=== PATIENT | female | born 1935 | race Caucasian/White ===

== ENCOUNTER 2020-07-09 18:02 | Inpatient (IN) ==
[2020-07-09] MEDS ORDERED: ONDANSETRON 4 MG/2 ML VIAL IV STA (18:34)
[2020-07-09] MEDS ORDERED: ASPIRIN 325 MG TABLET PO STA (18:34)
[2020-07-09] MEDS ORDERED: NITROGLYCERIN 2% OINT 1 INCH/GM PACK TOP STA (18:34)
[2020-07-09 18:40] LABS: Basophils % 0.2 % (0.0-0.8); Hematocrit 31.9 VOL% (35.7-47.0); Hemoglobin 10.8 GM/DL (12.0-16.0); Immature Granulocytes % 0.7 %; Immature Granulocytes Absolute 0.03 #; Lymphocytes # 1.1 10*3/uL (1.4-4.0); Lymphocytes % 25.9 % (21.3-54.2); Mean Corpuscular HGB Conc 33.9 GM/DL (32-36); Mean Corpuscular Volume 89.4 FL (87-102); Mean Platelet Volume 9.8 FL (9.6-12.0); Monocytes % 8.2 % (1.7-12.7); Platelet Count 181 T/CUMM (130-400); Red Blood Count 3.57 MC/CUMM (3.8-5.5); Red Cell Distribution Width 14.6 % (9.3-17.3); White Blood Count 4.3 T/CUMM (4-12)
[2020-07-09 18:51] LABS: PT Patient Result 10.8 SECS (9.8-11.9)
[2020-07-09 18:58] LABS: Albumin 3.8 G/DL (3.4-5.0); Bilirubin,Total 0.4 MG/DL (0.2-1.0); Calcium 8.9 MG/DL (8.5-10.1); Osmolality,Calculated 291.3 MOS/KG (273-304)
[2020-07-09] MEDS ORDERED: ENOXAPARIN 100 MG/ML SYRINGE SUBCUT STA (19:11)
[2020-07-09] MEDS ORDERED: MORPHINE 4 MG/1 ML VIAL IV STA (19:11)
[2020-07-09] MEDS ORDERED: DEXTROSE 50% 25 GM/50 ML VIAL IV PRN (20:13)
[2020-07-09] MEDS ORDERED: ONDANSETRON 4 MG/2 ML VIAL IV PRN (20:13)
[2020-07-09] MEDS ORDERED: diphenhydrAMINE CAP 25 MG CAPSULE PO PRN (20:13)
[2020-07-09] MEDS ORDERED: NICOTINE 21 MG/24 HR PATCH TRANSDERM PRN (20:13)
[2020-07-09] MEDS ORDERED: guaiFENesin/DM ER 600-30 MG TABLET PO PRN (20:13)
[2020-07-09] MEDS ORDERED: hydrALAZINE 20 MG/1 ML VIAL IV PRN (20:13)
[2020-07-09] MEDS ORDERED: GLUCAGON 1 MG VIAL IM PRN (20:13)
[2020-07-09] MEDS ORDERED: NITROGLYCERIN SL 0.4 MG TABLET SL PRN (20:32)
[2020-07-09 20:51] LABS: Risk Ratio 4.6; Thyroid Stimulating Hormone 2.55 uIU/ml (0.358-3.74); VLDL CHOLESTEROL 79.8 MG/DL
[2020-07-09] MEDS: METOPROLOL TARTRATE 25 MG TABLET PO SCH (22:58)
[2020-07-09] MEDS: INSULIN REGULAR 100 UNIT/ML SUBCUT SCH (22:59)
[2020-07-09] MEDS ORDERED: ATORVASTATIN 40 MG TABLET ONE (23:15)
[2020-07-09] MEDS ORDERED: INSULIN NPH/REGULAR 70/30 100 UNIT/ML SUBCUT STA (23:23)
[2020-07-09] MEDS: ATORVASTATIN 20 MG TABLET PO SCH (23:35)
[2020-07-09] MEDS: RANOLAZINE 500 MG TABLET PO SCH (23:35)
[2020-07-10 05:18] LABS: Albumin 3.1 G/DL (3.4-5.0); Bilirubin,Total 0.4 MG/DL (0.2-1.0); Calcium 8.6 MG/DL (8.5-10.1); Osmolality,Calculated 293.3 MOS/KG (273-304); Total Protein 6.4 G/DL (6.4-8.3)
[2020-07-10] MEDS: INSULIN REGULAR 100 UNIT/ML SUBCUT SCH ×4 (07:35→23:07)
[2020-07-10] MEDS ORDERED: POTASSIUM CHLORIDE 20 MEQ TABLET PO ONE (07:50)
[2020-07-10 08:43] LABS: Bilirubin,Urine Negative (Negative); Blood, Urine Negative (Negative); Glucose,Urine (UA) Negative (Negative); Ketones,Urine Negative (Negative); Mucus,Urine Occasional /LPF (Occasional); Nitrite,Urine Negative (Negative); Protein,Urine Negative; Urine Appearance CLEAR (Clear); Urine Color Yellow (Yellow); Urine Specific Gravity 1.011 (1.001-1.035); Urine Urobilinogen < 2.0 EU/DL (0.2-1.0)
[2020-07-10] MEDS ORDERED: ENOXAPARIN 100 MG/ML SYRINGE SUBCUT SCH ×2 (09:00→20:30)
[2020-07-10] MEDS ORDERED: ASPIRIN CHEW 81 MG TABLET PO ONE (09:12)
[2020-07-10] MEDS: PANTOPRAZOLE 40 MG TABLET PO SCH (09:29)
[2020-07-10] MEDS: ASPIRIN EC 81 MG TABLET PO SCH (09:29)
[2020-07-10] MEDS: METOPROLOL TARTRATE 25 MG TABLET PO SCH ×2 (09:29→21:52)
[2020-07-10] MEDS: INSULIN NPH/REGULAR 70/30 100 UNIT/ML SUBCUT SCH ×2 (09:31→21:50)
[2020-07-10] MEDS: ISOSORBIDE MONONITRATE 60 MG TABLET PO SCH (09:50)
[2020-07-10] MEDS: allopurinoL 300 MG TABLET PO SCH (09:50)
[2020-07-10] MEDS: RANOLAZINE 500 MG TABLET PO SCH ×2 (09:50→21:52)
[2020-07-10] MEDS: ENOXAPARIN 60 MG/0.6 ML SYRINGE SUBCUT SCH ×2 (10:00→21:52)
[2020-07-10] MEDS ORDERED: REGADENOSON 0.4 MG/5 ML SYRINGE IV ONE (13:00)
[2020-07-10] MEDS ORDERED: INFLUENZA VIRUS VACCINE 0.5 ML SYRINGE IM ONE (14:46)
[2020-07-10] MEDS ORDERED: ATORVASTATIN 20 MG TABLET PO SCH (21:00)
[2020-07-10] MEDS: ATORVASTATIN 20 MG TABLET PO SCH (21:52)
[2020-07-11] MEDS ORDERED: POTASSIUM CHLORIDE 20 MEQ TABLET PO PRN (07:33)
[2020-07-11] MEDS ORDERED: DIAZEPAM 5 MG TABLET PO ONE (07:48)
[2020-07-11] MEDS ORDERED: MAGNESIUM SULF RIDER 2 GM in PREMIX 1 EACH IV PRN (07:48)
[2020-07-11] MEDS ORDERED: POTASSIUM CHLORIDE RIDER 10 MEQ in PREMIX 1 EACH IV PRN (07:48)
[2020-07-11] MEDS ORDERED: diphenhydrAMINE CAP 25 MG CAPSULE PO ONE (07:48)
[2020-07-11] MEDS ORDERED: SODIUM CHLORIDE 0.45% 1,000 ML IV SCH (08:00)
[2020-07-11] MEDS: METOPROLOL TARTRATE 25 MG TABLET PO SCH ×2 (09:24→20:56)
[2020-07-11] MEDS: PANTOPRAZOLE 40 MG TABLET PO SCH (09:24)
[2020-07-11] MEDS: ISOSORBIDE MONONITRATE 60 MG TABLET PO SCH (09:24)
[2020-07-11] MEDS: ASPIRIN EC 81 MG TABLET PO SCH (09:24)
[2020-07-11] MEDS: allopurinoL 300 MG TABLET PO SCH (09:24)
[2020-07-11] MEDS: RANOLAZINE 500 MG TABLET PO SCH ×2 (09:24→20:56)
[2020-07-11] MEDS: INSULIN REGULAR 100 UNIT/ML SUBCUT SCH ×4 (09:28→21:03)
[2020-07-11] MEDS: INSULIN NPH/REGULAR 70/30 100 UNIT/ML SUBCUT SCH ×2 (09:29→20:58)
[2020-07-11 09:31] LABS: Basophils % 0.4 % (0.0-0.8); Hematocrit 28.9 VOL% (35.7-47.0); Hemoglobin 9.5 GM/DL (12.0-16.0); Immature Granulocytes % 1.1 %; Immature Granulocytes Absolute 0.03 #; Lymphocytes # 0.8 10*3/uL (1.4-4.0); Lymphocytes % 28.3 % (21.3-54.2); Mean Corpuscular HGB Conc 32.9 GM/DL (32-36); Monocytes % 11.2 % (1.7-12.7); Platelet Count 122 T/CUMM (130-400); Red Blood Count 3.14 MC/CUMM (3.8-5.5); Red Cell Distribution Width 14.8 % (9.3-17.3); White Blood Count 2.7 T/CUMM (4-12)
[2020-07-11 09:50] LABS: Calcium 8.6 MG/DL (8.5-10.1)
[2020-07-11] MEDS ORDERED: HEPARIN/NACL 0.9% 2 UNITS/ML 500 ML IV ONE (12:59)
[2020-07-11] MEDS ORDERED: LIDOCAINE 1% 20 ML VIAL ONE (12:59)
[2020-07-11] MEDS ORDERED: LIDOCAINE 1%/EPI INJ 20 ML VIAL ONE ×2 (13:00→13:01)
[2020-07-11] MEDS ORDERED: ceFAZolin 1,000 MG VIAL ONE (13:08)
[2020-07-11] MEDS ORDERED: diphenhydrAMINE 50 MG/1 ML VIAL ONE (13:11)
[2020-07-11] MEDS ORDERED: fentaNYL 100 MCG/2 ML VIAL ONE (13:16)
[2020-07-11] MEDS ORDERED: MIDAZOLAM 2 MG/2 ML VIAL ONE (13:25)
[2020-07-11] MEDS ORDERED: KETOROLAC 10 MG TABLET PO PRN (14:17)
[2020-07-11] MEDS ORDERED: DEXTROSE 5% NACL 0.45% 1,000 ML IV SCH (14:30)
[2020-07-11] MEDS ORDERED: POLYETHYLENE GLYCOL POWDER 17 GM PACK PO PRN (20:18)
[2020-07-11] MEDS: ATORVASTATIN 20 MG TABLET PO SCH (20:56)
[2020-07-12 05:11] LABS: Basophils % 0.5 % (0.0-0.8); Hematocrit 29.5 VOL% (35.7-47.0); Hemoglobin 9.7 GM/DL (12.0-16.0); Immature Granulocytes % 0.7 %; Immature Granulocytes Absolute 0.03 #; Lymphocytes # 0.7 10*3/uL (1.4-4.0); Lymphocytes % 17.1 % (21.3-54.2); Mean Corpuscular HGB Conc 32.9 GM/DL (32-36); Mean Corpuscular Volume 91.6 FL (87-102); Mean Platelet Volume 10.1 FL (9.6-12.0); Monocytes % 8.2 % (1.7-12.7); Neutrophils % 73.5 % (38.7-73.9); Platelet Count 135 T/CUMM (130-400); Red Blood Count 3.22 MC/CUMM (3.8-5.5); Red Cell Distribution Width 14.7 % (9.3-17.3); White Blood Count 4.1 T/CUMM (4-12)
[2020-07-12 05:49] LABS: Calcium 8.5 MG/DL (8.5-10.1); Osmolality,Calculated 290.7 MOS/KG (273-304)
[2020-07-12] MEDS: INSULIN REGULAR 100 UNIT/ML SUBCUT SCH ×2 (08:36→12:12)
[2020-07-12] MEDS: INSULIN NPH/REGULAR 70/30 100 UNIT/ML SUBCUT SCH (08:37)
[2020-07-12] MEDS: ASPIRIN EC 81 MG TABLET PO SCH (08:38)
[2020-07-12] MEDS: RANOLAZINE 500 MG TABLET PO SCH (08:38)
[2020-07-12] MEDS: ISOSORBIDE MONONITRATE 60 MG TABLET PO SCH (08:38)
[2020-07-12] MEDS: allopurinoL 300 MG TABLET PO SCH (08:38)
[2020-07-12] MEDS: PANTOPRAZOLE 40 MG TABLET PO SCH (08:38)
[2020-07-12] MEDS: METOPROLOL TARTRATE 25 MG TABLET PO SCH (08:38)
[2020-07-12 12:31] VITALS: BP 154/67
== END 2020-07-12 15:23 | disposition home health service (06) | DRG 243 ==
LOC: N.ED 18:02 → N.EDINP 18:02 → N.TELEN 07-10 12:01
PROVIDERS: ADMIT Internal Medicine Geriatric Medicine; ATTEND Internal Medicine Geriatric Medicine

== ENCOUNTER 2020-11-17 10:46 | Inpatient (IN) ==
[2020-11-17 11:59] LABS: Basophils % 0.2 % (0.0-0.8); Hematocrit 29.6 VOL% (35.7-47.0); Hemoglobin 9.5 GM/DL (12.0-16.0); Immature Granulocytes % 6.5 %; Immature Granulocytes Absolute 0.28 #; Lymphocytes # 0.4 10*3/uL (1.4-4.0); Lymphocytes % 10.3 % (21.3-54.2); Mean Corpuscular HGB Conc 32.1 GM/DL (32-36); Mean Corpuscular Volume 90.2 FL (87-102); Mean Platelet Volume 10.5 FL (9.6-12.0); Monocytes % 7.5 % (1.7-12.7); Neutrophils % 75.5 % (38.7-73.9); Platelet Count 181 T/CUMM (130-400); Red Blood Count 3.28 MC/CUMM (3.8-5.5); Red Cell Distribution Width 13.8 % (9.3-17.3); White Blood Count 4.3 T/CUMM (4-12)
[2020-11-17 12:14] LABS: PT Patient Result 10.9 SECS (9.8-11.9)
[2020-11-17 12:23] LABS: Albumin 2.5 G/DL (3.4-5.0); Bilirubin,Total 0.6 MG/DL (0.2-1.0); Calcium 7.5 MG/DL (8.5-10.1); Osmolality,Calculated 284.3 MOS/KG (273-304); Potassium 3.9 MMOL/L (3.5-5.1); Total Protein 5.5 G/DL (5.0-7.5)
[2020-11-17 12:25] LABS: Band Neutrophils 2 % (0-10); Lymphocytes 5 % (20-55); Segmented Neutrophils 92 % (50-85); Total Cells Counted 100
[2020-11-17 12:26] LABS: Burr Cells Slight; Elliptocytes Few; Platelet Estimate Adequate; Poikilocytosis Few
[2020-11-17] MEDS ORDERED: PIPERACILLIN/TAZOBACTAM 3,375 MG in SODIUM CHLORIDE 0.9% 100 ML IV STA (12:42)
[2020-11-17] MEDS ORDERED: SODIUM CHLORIDE 0.9% 100 ML IV ONE (13:08)
[2020-11-17] MEDS ORDERED: PIPERACILLIN/TAZOBACTAM 3,375 MG VIAL IV ONE (13:09)
[2020-11-17] MEDS ORDERED: DEXTROSE 50% 25 GM/50 ML VIAL IV PRN ×2 (15:19)
[2020-11-17] MEDS ORDERED: ACETAMINOPHEN 325 MG TABLET PO PRN (15:19)
[2020-11-17] MEDS ORDERED: GLUCAGON 1 MG VIAL IM PRN ×2 (15:19)
[2020-11-17 15:44] LABS: Ferritin 187.3 ng/ml (8-252)
[2020-11-17] MEDS: methylPREDNISolone SOD SUC 40 MG/1 ML VIAL IV SCH (17:42)
[2020-11-17] MEDS: ENOXAPARIN 40 MG/0.4 ML SYRINGE SUBCUT SCH (17:42)
[2020-11-17] MEDS: INSULIN LISPRO 100 UNIT/ML SUBCUT SCH ×2 (17:42→20:13)
[2020-11-17] MEDS: ASCORBIC ACID 500 MG TABLET PO SCH (20:13)
[2020-11-18] MEDS: methylPREDNISolone SOD SUC 40 MG/1 ML VIAL IV SCH ×4 (00:20→23:15)
[2020-11-18 05:27] LABS: Basophils % 0.4 % (0.0-0.8); Hematocrit 29.5 VOL% (35.7-47.0); Hemoglobin 9.4 GM/DL (12.0-16.0); Immature Granulocytes % 10.5 %; Immature Granulocytes Absolute 0.26 #; Lymphocytes # 0.2 10*3/uL (1.4-4.0); Lymphocytes % 8.9 % (21.3-54.2); Mean Corpuscular HGB Conc 31.9 GM/DL (32-36); Mean Corpuscular Volume 89.4 FL (87-102); Mean Platelet Volume 10.1 FL (9.6-12.0); Monocytes % 2.8 % (1.7-12.7); Neutrophils % 77.4 % (38.7-73.9); Platelet Count 151 T/CUMM (130-400); Red Cell Distribution Width 13.6 % (9.3-17.3); White Blood Count 2.5 T/CUMM (4-12)
[2020-11-18 05:49] LABS: Band Neutrophils 1 % (0-10); Hypochromasia 1+; Lymphocytes 6 % (20-55); Microcytosis 1+; Platelet Estimate Adequate; Segmented Neutrophils 91 % (50-85); Total Cells Counted 100
[2020-11-18] MEDS: ZINC GLUCONATE 50 MG TABLET PO SCH (08:32)
[2020-11-18] MEDS: PANTOPRAZOLE 40 MG TABLET PO SCH (08:32)
[2020-11-18] MEDS: ASCORBIC ACID 500 MG TABLET PO SCH ×2 (08:32→20:10)
[2020-11-18] MEDS: CHOLECALCIFEROL 1,000 UNIT TABLET PO SCH (08:32)
[2020-11-18] MEDS: AZITHROMYCIN INJ 500 MG in SODIUM CHLORIDE 0.9% 250 ML IV SCH (08:34)
[2020-11-18] MEDS ORDERED: MAGNESIUM SULF RIDER 2 GM in PREMIX 1 EACH IV PRN (09:13)
[2020-11-18] MEDS: INSULIN LISPRO 100 UNIT/ML SUBCUT SCH ×4 (09:13→20:10)
[2020-11-18] MEDS ORDERED: MAGNESIUM SULF RIDER 4 GM in PREMIX 1 EACH IV PRN (09:13)
[2020-11-18] MEDS: ENOXAPARIN 40 MG/0.4 ML SYRINGE SUBCUT SCH (20:10)
[2020-11-19 05:46] LABS: Hematocrit 27.4 VOL% (35.7-47.0); Hemoglobin 8.9 GM/DL (12.0-16.0); Immature Granulocytes Absolute 0.15 #; Lymphocytes # 0.3 10*3/uL (1.4-4.0); Lymphocytes % 7.7 % (21.3-54.2); Mean Corpuscular HGB Conc 32.5 GM/DL (32-36); Mean Corpuscular Volume 90.4 FL (87-102); Mean Platelet Volume 10.4 FL (9.6-12.0); Monocytes % 3.2 % (1.7-12.7); Neutrophils % 85.1 % (38.7-73.9); Platelet Count 175 T/CUMM (130-400); Red Blood Count 3.03 MC/CUMM (3.8-5.5); Red Cell Distribution Width 13.5 % (9.3-17.3); White Blood Count 3.8 T/CUMM (4-12)
[2020-11-19 06:08] LABS: Albumin 2.4 G/DL (3.4-5.0); Bilirubin,Total 0.8 MG/DL (0.2-1.0); Calcium 7.9 MG/DL (8.5-10.1); Ferritin 210.2 ng/ml (8-252); Osmolality,Calculated 291.7 MOS/KG (273-304)
[2020-11-19] MEDS: ZINC GLUCONATE 50 MG TABLET PO SCH (08:49)
[2020-11-19] MEDS: CHOLECALCIFEROL 1,000 UNIT TABLET PO SCH (08:50)
[2020-11-19] MEDS: ASCORBIC ACID 500 MG TABLET PO SCH (08:50)
[2020-11-19] MEDS: PANTOPRAZOLE 40 MG TABLET PO SCH (08:50)
[2020-11-19] MEDS: methylPREDNISolone SOD SUC 40 MG/1 ML VIAL IV SCH (08:50)
[2020-11-19] MEDS: INSULIN LISPRO 100 UNIT/ML SUBCUT SCH ×2 (08:51→11:26)
[2020-11-19] MEDS: AZITHROMYCIN INJ 500 MG in SODIUM CHLORIDE 0.9% 250 ML IV SCH (08:51)
[2020-11-19 11:11] VITALS: BP 149/69
== END 2020-11-19 13:00 | disposition home or self-care (01) | DRG 177 ==
LOC: N.ED 10:46 → N.2E 15:19
PROVIDERS: ADMIT Internal Medicine; ATTEND Internal Medicine

== ENCOUNTER 2022-05-11 18:40 | Observation (INO) ==
[2022-05-11] MEDS ORDERED: MORPHINE 2 MG/1 ML SYRINGE IM STA (19:11)
[2022-05-11] MEDS ORDERED: ONDANSETRON 4 MG/2 ML VIAL IM STA (19:11)
[2022-05-11] MEDS ORDERED: MORPHINE 2 MG/1 ML SYRINGE IV STA ×2 (20:13→22:54)
[2022-05-11] MEDS ORDERED: ONDANSETRON 4 MG/2 ML VIAL IV ONE ×2 (20:13→22:54)
[2022-05-11 20:25] LABS: Basophils % 0.3 % (0.0-0.8); Eosinophils # 0.1 10*3/uL (0.0-0.87); Eosinophils % 1.2 % (0.00-10.9); Hematocrit 35.4 VOL% (35.7-47.0); Hemoglobin 11.4 GM/DL (12.0-16.0); Immature Granulocytes Absolute 0.06 #; Lymphocytes # 1.4 10*3/uL (1.4-4.0); Lymphocytes % 23.8 % (21.3-54.2); Mean Corpuscular HGB Conc 32.2 GM/DL (32-36); Mean Corpuscular Volume 94.9 FL (87-102); Mean Platelet Volume 9.6 FL (9.6-12.0); Monocytes # 0.4 10*3/uL (0.11-0.8); Monocytes % 7.2 % (1.7-12.7); Neutrophils % 66.5 % (38.7-73.9); Platelet Count 179 T/CUMM (130-400); Red Blood Count 3.73 MC/CUMM (3.8-5.5); Red Cell Distribution Width 13.4 % (9.3-17.3); White Blood Count 5.7 T/CUMM (4-12)
[2022-05-11 20:44] LABS: Calcium 8.8 MG/DL (8.5-10.1); Osmolality,Calculated 300.8 MOS/KG (273-304); Potassium 4.9 MMOL/L (3.5-5.1)
[2022-05-11] MEDS ORDERED: LACTATED RINGERS 1,000 ML IV ONE (21:15)
[2022-05-12] MEDS ORDERED: HYDROmorphone 1 MG/1 ML SYRINGE IV PRN (00:13)
[2022-05-12] MEDS ORDERED: ZALEPLON 5 MG CAPSULE PO PRN (00:14)
[2022-05-12] MEDS ORDERED: guaiFENesin/DM ER 600-30 MG TABLET PO PRN (00:14)
[2022-05-12] MEDS ORDERED: ONDANSETRON 4 MG/2 ML VIAL IV PRN (00:14)
[2022-05-12] MEDS ORDERED: GLUCAGON 1 MG VIAL IM PRN ×2 (00:14)
[2022-05-12] MEDS ORDERED: hydrALAZINE 20 MG/1 ML VIAL IV PRN (00:14)
[2022-05-12] MEDS ORDERED: NICOTINE 21 MG/24 HR PATCH TRANSDERM PRN (00:14)
[2022-05-12] MEDS ORDERED: PROMETHAZINE 25 MG/1 ML VIAL IM PRN (00:14)
[2022-05-12] MEDS ORDERED: DEXTROSE 50% 25 GM/50 ML VIAL IV PRN (00:14)
[2022-05-12] MEDS ORDERED: diphenhydrAMINE CAP 25 MG CAPSULE PO PRN (00:14)
[2022-05-12] MEDS ORDERED: DEXTROSE 10% 250 ML BAG IV PRN (00:22)
[2022-05-12 05:34] LABS: Basophils % 0.4 % (0.0-0.8); Eosinophils # 0.1 10*3/uL (0.0-0.87); Eosinophils % 0.9 % (0.00-10.9); Hematocrit 38.2 VOL% (35.7-47.0); Immature Granulocytes % 0.9 %; Immature Granulocytes Absolute 0.07 #; Lymphocytes # 1.6 10*3/uL (1.4-4.0); Lymphocytes % 20.3 % (21.3-54.2); Mean Corpuscular HGB Conc 31.4 GM/DL (32-36); Mean Corpuscular Volume 95.7 FL (87-102); Mean Platelet Volume 9.4 FL (9.6-12.0); Monocytes # 0.8 10*3/uL (0.11-0.8); Neutrophils % 67.5 % (38.7-73.9); Platelet Count 178 T/CUMM (130-400); Red Blood Count 3.99 MC/CUMM (3.8-5.5); Red Cell Distribution Width 13.4 % (9.3-17.3)
[2022-05-12 05:48] LABS: Calcium 8.9 MG/DL (8.5-10.1); Osmolality,Calculated 297.3 MOS/KG (273-304)
[2022-05-12] MEDS ORDERED: INSULIN LISPRO 100 UNIT/ML SUBCUT SCH (07:30)
[2022-05-12] MEDS ORDERED: KETOROLAC 10 MG TABLET PO PRN (08:05)
[2022-05-12] MEDS: DOCUSATE SODIUM 100 MG CAPSULE PO SCH ×2 (08:56→21:08)
[2022-05-12] MEDS: PANTOPRAZOLE 40 MG TABLET PO SCH (08:56)
[2022-05-12] MEDS: ISOSORBIDE MONONITRATE 60 MG TABLET PO SCH (08:56)
[2022-05-12] MEDS: FUROSEMIDE 40 MG TABLET PO SCH ×2 (08:56→16:46)
[2022-05-12] MEDS: GABAPENTIN 100 MG CAPSULE PO SCH ×2 (08:56→21:08)
[2022-05-12] MEDS: ATORVASTATIN 20 MG TABLET PO SCH (08:56)
[2022-05-12] MEDS: ASPIRIN EC 81 MG TABLET PO SCH (08:56)
[2022-05-12] MEDS: cycloSPORINE OPH EMUL 1 VIAL BOTH EYES SCH ×2 (08:57→22:17)
[2022-05-12] MEDS: BISACODYL 5 MG TABLET PO SCH (08:58)
[2022-05-12] MEDS: RANOLAZINE 500 MG TABLET PO SCH ×2 (08:58→21:08)
[2022-05-12] MEDS ORDERED: APIXABAN 2.5 MG TABLET PO SCH (09:00)
[2022-05-12] MEDS ORDERED: HEPARIN 5,000 UNIT/1 ML VIAL SUBCUT SCH (09:00)
[2022-05-12] MEDS: INSULIN NPH/REGULAR 70/30 100 UNIT/ML SUBCUT SCH (09:02)
[2022-05-12] MEDS ORDERED: MORPHINE 2 MG/1 ML SYRINGE IV PRN (09:09)
[2022-05-12] MEDS ORDERED: INSULIN NPH/REGULAR 70/30 100 UNIT/ML SUBCUT SCH (17:00)
[2022-05-13 05:48] LABS: Basophils % 0.2 % (0.0-0.8); Eosinophils # 0.1 10*3/uL (0.0-0.87); Eosinophils % 1.7 % (0.00-10.9); Hematocrit 30.9 VOL% (35.7-47.0); Hemoglobin 9.9 GM/DL (12.0-16.0); Immature Granulocytes % 0.9 %; Immature Granulocytes Absolute 0.05 #; Lymphocytes # 1.3 10*3/uL (1.4-4.0); Lymphocytes % 23.3 % (21.3-54.2); Mean Corpuscular Volume 95.7 FL (87-102); Mean Platelet Volume 9.6 FL (9.6-12.0); Monocytes # 0.5 10*3/uL (0.11-0.8); Monocytes % 8.8 % (1.7-12.7); Neutrophils % 65.1 % (38.7-73.9); Platelet Count 172 T/CUMM (130-400); Red Blood Count 3.23 MC/CUMM (3.8-5.5); Red Cell Distribution Width 13.6 % (9.3-17.3); White Blood Count 5.4 T/CUMM (4-12)
[2022-05-13 06:07] LABS: Calcium 8.2 MG/DL (8.5-10.1); Osmolality,Calculated 291.5 MOS/KG (273-304); Potassium 4.1 MMOL/L (3.5-5.1)
[2022-05-13] MEDS: RANOLAZINE 500 MG TABLET PO SCH (09:43)
[2022-05-13] MEDS: ISOSORBIDE MONONITRATE 60 MG TABLET PO SCH (09:43)
[2022-05-13] MEDS: FUROSEMIDE 40 MG TABLET PO SCH ×2 (09:43→16:00)
[2022-05-13] MEDS: ASPIRIN EC 81 MG TABLET PO SCH (09:43)
[2022-05-13] MEDS: GABAPENTIN 100 MG CAPSULE PO SCH (09:43)
[2022-05-13] MEDS: ATORVASTATIN 20 MG TABLET PO SCH (09:43)
[2022-05-13] MEDS: PANTOPRAZOLE 40 MG TABLET PO SCH (09:44)
[2022-05-13] MEDS: INSULIN NPH/REGULAR 70/30 100 UNIT/ML SUBCUT SCH (09:46)
[2022-05-13] MEDS: BISACODYL 5 MG TABLET PO SCH (09:47)
[2022-05-13] MEDS: DOCUSATE SODIUM 100 MG CAPSULE PO SCH (09:47)
[2022-05-13] MEDS: cycloSPORINE OPH EMUL 1 VIAL BOTH EYES SCH (10:15)
[2022-05-13 12:25] VITALS: BP 171/68
== END 2022-05-13 16:29 | disposition home health service (06) ==
LOC: N.ED 18:40 → N.3E 18:40 → SUATTDRO 05-12 00:14 → N.3E 05-12 01:48
PROVIDERS: ADMIT Internal Medicine; ATTEND Internal Medicine

== ENCOUNTER 2022-09-01 21:52 | Inpatient (IN) ==
[2022-09-01] MEDS ORDERED: SODIUM CHLORIDE 0.9% 500 ML IV STA (23:22)
[2022-09-02 00:33] LABS: Hematocrit 29.6 VOL% (35.7-47.0); Hemoglobin 9.8 GM/DL (12.0-16.0); Immature Granulocytes % 0.5 %; Immature Granulocytes Absolute 0.02 #; Lymphocytes # 0.3 10*3/uL (1.4-4.0); Lymphocytes % 7.1 % (21.3-54.2); Mean Corpuscular HGB Conc 33.1 GM/DL (32-36); Mean Corpuscular Volume 91.1 FL (87-102); Mean Platelet Volume 10.7 FL (9.6-12.0); Monocytes # 0.4 10*3/uL (0.11-0.8); Monocytes % 10.4 % (1.7-12.7); Platelet Count 100 T/CUMM (130-400); Red Blood Count 3.25 MC/CUMM (3.8-5.5); Red Cell Distribution Width 13.7 % (9.3-17.3); White Blood Count 3.7 T/CUMM (4-12)
[2022-09-02 00:41] LABS: INR 1.1; PT Patient Result 12.5 SECS (10.1-12.1)
[2022-09-02 00:44] LABS: Amorphous Crystals,Urine Occasional /HPF (Few); Glucose,Urine (UA) 100 mg/dL (Negative); Ketones,Urine Negative (Negative); Protein,Urine 100 mg/dL (Negative); Urine Appearance Clear (Clear); Urine Color Yellow (Yellow)
[2022-09-02 00:45] LABS: Bilirubin,Urine Negative (Negative); Blood, Urine Moderate mg/dL (Negative); Nitrite,Urine Negative (Negative); Urine Urobilinogen 0.2 eU/dL (<2.0)
[2022-09-02] MEDS ORDERED: NITROFURANTOIN MACRO/MONO 100 MG CAPSULE PO ONE (00:59)
[2022-09-02] MEDS ORDERED: PIPERACILLIN/TAZOBACTAM 3,375 MG in SODIUM CHLORIDE 0.9% 100 ML IV STA (01:12)
[2022-09-02 01:15] LABS: Albumin 3.3 G/DL (3.4-5.0); Bilirubin,Total 0.7 MG/DL (0.20-1.00); Calcium 8.1 MG/DL (8.5-10.1); Osmolality,Calculated 291.4 MOS/KG (273-304); Potassium 3.4 MMOL/L (3.5-5.1); Total Protein 5.9 G/DL (6.4-8.2)
[2022-09-02] MEDS ORDERED: ASPIRIN 325 MG TABLET PO STA (01:19)
[2022-09-02] MEDS ORDERED: ACETAMINOPHEN 500 MG TABLET PO STA (01:30)
[2022-09-02] MEDS ORDERED: ONDANSETRON 4 MG/2 ML VIAL IV PRN (02:33)
[2022-09-02] MEDS ORDERED: ACETAMINOPHEN 325 MG TABLET PO PRN (02:33)
[2022-09-02] MEDS ORDERED: MORPHINE 2 MG/1 ML SYRINGE IV PRN (02:33)
[2022-09-02] MEDS ORDERED: hydrALAZINE 20 MG/1 ML VIAL IV PRN (02:33)
[2022-09-02] MEDS ORDERED: SODIUM CHLORIDE 0.9% 1,000 ML IV SCH (03:00)
[2022-09-02 04:41] LABS: Risk Ratio 3.13; Thyroid Stimulating Hormone 4.63 uIU/ml (0.358-3.74)
[2022-09-02] MEDS: INSULIN LISPRO 100 UNIT/ML SUBCUT SCH ×4 (06:16→20:52)
[2022-09-02] MEDS: PANTOPRAZOLE 40 MG TABLET PO SCH (09:15)
[2022-09-02] MEDS: PIPERACILLIN/TAZOBACTAM 3,375 MG in SODIUM CHLORIDE 0.9% 100 ML IV SCH ×2 (09:15→17:41)
[2022-09-02 09:46] LABS: Free T4 (Free Thyroxine) 0.69 NG/DL (0.76-1.46)
[2022-09-02] MEDS ORDERED: DEXTROSE 10% 250 ML BAG IV PRN (13:54)
[2022-09-02] MEDS ORDERED: GLUCAGON 1 MG VIAL IM PRN (13:54)
[2022-09-02] MEDS: ASPIRIN EC 81 MG TABLET PO SCH (20:51)
[2022-09-02] MEDS: OMEGA 3 ACID ETHYL ESTERS 1 GM CAPSULE PO SCH (20:51)
[2022-09-02] MEDS: GABAPENTIN 100 MG CAPSULE PO SCH (20:51)
[2022-09-02] MEDS: ATORVASTATIN 20 MG TABLET PO SCH (20:51)
[2022-09-02] MEDS: cycloSPORINE OPH EMUL 1 VIAL BOTH EYES SCH (20:52)
[2022-09-02] MEDS: RANOLAZINE 500 MG TABLET PO SCH (20:52)
[2022-09-02] MEDS: APIXABAN 2.5 MG TABLET PO SCH (20:52)
[2022-09-02] MEDS: INSULIN GLARGINE 100 UNIT/ML SUBCUT SCH (21:58)
[2022-09-03] MEDS: PIPERACILLIN/TAZOBACTAM 3,375 MG in SODIUM CHLORIDE 0.9% 100 ML IV SCH ×3 (00:43→16:08)
[2022-09-03 06:13] LABS: Basophils % 0.3 % (0.0-0.8); Eosinophils % 1.1 % (0.00-10.9); Hematocrit 26.5 VOL% (35.7-47.0); Hemoglobin 8.9 GM/DL (12.0-16.0); Immature Granulocytes % 0.3 %; Immature Granulocytes Absolute 0.01 #; Lymphocytes # 0.6 10*3/uL (1.4-4.0); Mean Corpuscular HGB Conc 33.6 GM/DL (32-36); Mean Corpuscular Volume 91.4 FL (87-102); Mean Platelet Volume 11.3 FL (9.6-12.0); Monocytes # 0.4 10*3/uL (0.11-0.8); Monocytes % 10.5 % (1.7-12.7); Neutrophils % 71.8 % (38.7-73.9); Platelet Count 93 T/CUMM (130-400); Red Cell Distribution Width 13.7 % (9.3-17.3); White Blood Count 3.6 T/CUMM (4-12)
[2022-09-03 06:21] LABS: Calcium 8.1 MG/DL (8.5-10.1)
[2022-09-03] MEDS ORDERED: POTASSIUM CHLORIDE 20 MEQ TABLET PO ONE (07:48)
[2022-09-03] MEDS: OMEGA 3 ACID ETHYL ESTERS 1 GM CAPSULE PO SCH ×2 (08:24→21:19)
[2022-09-03] MEDS: GABAPENTIN 100 MG CAPSULE PO SCH ×2 (08:24→21:19)
[2022-09-03] MEDS: cycloSPORINE OPH EMUL 1 VIAL BOTH EYES SCH ×2 (08:24→21:24)
[2022-09-03] MEDS: APIXABAN 2.5 MG TABLET PO SCH ×2 (08:24→21:19)
[2022-09-03] MEDS: RANOLAZINE 500 MG TABLET PO SCH ×2 (08:24→21:18)
[2022-09-03] MEDS: ISOSORBIDE MONONITRATE 60 MG TABLET PO SCH (08:24)
[2022-09-03] MEDS: PANTOPRAZOLE 40 MG TABLET PO SCH (08:24)
[2022-09-03] MEDS: INSULIN LISPRO 100 UNIT/ML SUBCUT SCH ×4 (08:24→21:12)
[2022-09-03] MEDS: FUROSEMIDE 40 MG TABLET PO SCH ×2 (11:58→21:19)
[2022-09-03] MEDS: INSULIN GLARGINE 100 UNIT/ML SUBCUT SCH (21:12)
[2022-09-03] MEDS: ASPIRIN EC 81 MG TABLET PO SCH (21:19)
[2022-09-03] MEDS: ATORVASTATIN 20 MG TABLET PO SCH (21:46)
[2022-09-04] MEDS: PIPERACILLIN/TAZOBACTAM 3,375 MG in SODIUM CHLORIDE 0.9% 100 ML IV SCH ×3 (00:23→16:36)
[2022-09-04 04:59] LABS: Basophils % 0.3 % (0.0-0.8); Eosinophils # 0.1 10*3/uL (0.0-0.87); Eosinophils % 1.8 % (0.00-10.9); Hematocrit 23.4 VOL% (35.7-47.0); Immature Granulocytes % 0.9 %; Immature Granulocytes Absolute 0.03 #; Lymphocytes # 0.7 10*3/uL (1.4-4.0); Lymphocytes % 21.2 % (21.3-54.2); Mean Corpuscular HGB Conc 34.2 GM/DL (32-36); Mean Platelet Volume 11.5 FL (9.6-12.0); Monocytes # 0.4 10*3/uL (0.11-0.8); Monocytes % 10.8 % (1.7-12.7); Platelet Count 85 T/CUMM (130-400); Red Cell Distribution Width 13.9 % (9.3-17.3); White Blood Count 3.3 T/CUMM (4-12)
[2022-09-04 05:18] LABS: Calcium 7.6 MG/DL (8.5-10.1); Osmolality,Calculated 289.7 MOS/KG (273-304); Potassium 3.4 MMOL/L (3.5-5.1)
[2022-09-04 05:42] LABS: Platelet Estimate Decreased
[2022-09-04] MEDS ORDERED: MAGNESIUM SULF RIDER 2 GM/50 ML PREMIX IV ONE (07:55)
[2022-09-04] MEDS ORDERED: POTASSIUM CHLORIDE 20 MEQ TABLET PO ONE (07:55)
[2022-09-04] MEDS: INSULIN LISPRO 100 UNIT/ML SUBCUT SCH ×4 (10:02→21:56)
[2022-09-04] MEDS: cycloSPORINE OPH EMUL 1 VIAL BOTH EYES SCH ×2 (10:08→21:58)
[2022-09-04] MEDS: ISOSORBIDE MONONITRATE 60 MG TABLET PO SCH (10:09)
[2022-09-04] MEDS: OMEGA 3 ACID ETHYL ESTERS 1 GM CAPSULE PO SCH ×2 (10:09→21:58)
[2022-09-04] MEDS: APIXABAN 2.5 MG TABLET PO SCH ×2 (10:09→21:55)
[2022-09-04] MEDS: GABAPENTIN 100 MG CAPSULE PO SCH ×2 (10:09→21:59)
[2022-09-04] MEDS: RANOLAZINE 500 MG TABLET PO SCH ×2 (10:09→21:58)
[2022-09-04] MEDS: FUROSEMIDE 40 MG TABLET PO SCH ×2 (10:09→21:57)
[2022-09-04] MEDS: PANTOPRAZOLE 40 MG TABLET PO SCH (10:09)
[2022-09-04] MEDS ORDERED: INSULIN GLARGINE 100 UNIT/ML SUBCUT SCH (21:00)
[2022-09-04] MEDS: ASPIRIN EC 81 MG TABLET PO SCH (21:55)
[2022-09-04] MEDS: ATORVASTATIN 20 MG TABLET PO SCH (22:10)
[2022-09-05] MEDS: PIPERACILLIN/TAZOBACTAM 3,375 MG in SODIUM CHLORIDE 0.9% 100 ML IV SCH ×2 (00:45→09:52)
[2022-09-05 05:58] LABS: Eosinophils % 1.3 % (0.00-10.9); Hematocrit 24.2 VOL% (35.7-47.0); Hemoglobin 8.1 GM/DL (12.0-16.0); Immature Granulocytes % 1.9 %; Immature Granulocytes Absolute 0.06 #; Lymphocytes # 0.6 10*3/uL (1.4-4.0); Lymphocytes % 18.4 % (21.3-54.2); Mean Corpuscular HGB Conc 33.5 GM/DL (32-36); Mean Corpuscular Volume 91.3 FL (87-102); Mean Platelet Volume 11.8 FL (9.6-12.0); Monocytes # 0.4 10*3/uL (0.11-0.8); Monocytes % 11.4 % (1.7-12.7); Platelet Count 88 T/CUMM (130-400); Red Blood Count 2.65 MC/CUMM (3.8-5.5); White Blood Count 3.2 T/CUMM (4-12)
[2022-09-05 06:09] LABS: Calcium 8.2 MG/DL (8.5-10.1); Osmolality,Calculated 298.1 MOS/KG (273-304); Potassium 3.6 MMOL/L (3.5-5.1)
[2022-09-05 06:19] LABS: Hypochromia Slight; Microcytosis Slight; Ovalocytes Slight; Platelet Estimate Decreased
[2022-09-05] MEDS: INSULIN LISPRO 100 UNIT/ML SUBCUT SCH ×2 (09:41→12:48)
[2022-09-05] MEDS: OMEGA 3 ACID ETHYL ESTERS 1 GM CAPSULE PO SCH (09:47)
[2022-09-05] MEDS: PANTOPRAZOLE 40 MG TABLET PO SCH (09:47)
[2022-09-05] MEDS: FUROSEMIDE 40 MG TABLET PO SCH (09:48)
[2022-09-05] MEDS: APIXABAN 2.5 MG TABLET PO SCH (09:48)
[2022-09-05] MEDS: RANOLAZINE 500 MG TABLET PO SCH (09:48)
[2022-09-05] MEDS: ISOSORBIDE MONONITRATE 60 MG TABLET PO SCH (09:48)
[2022-09-05] MEDS: cycloSPORINE OPH EMUL 1 VIAL BOTH EYES SCH (09:48)
[2022-09-05] MEDS: GABAPENTIN 100 MG CAPSULE PO SCH (09:48)
[2022-09-05 12:24] VITALS: BP 150/71
== END 2022-09-05 14:18 | disposition home or self-care (01) | DRG 689 ==
LOC: EDBD → EDUNIT# → N.ED 21:52 → SUATTDRO 09-02 02:33 → N.EDINP 09-02 02:33 → N.TELEN 09-02 16:54
PROVIDERS: ADMIT Emergency Medicine; ATTEND Internal Medicine